=== PATIENT | female | born 1995 | race Caucasian/White ===

== ENCOUNTER 2017-03-07 05:31 | Outpatient (CLI) | payer OTHER ==
[~2017-03-07] VITALS: Ht 172.7 cm; Wt 58.5 kg
[2017-03-07] MEDS ORDERED: OVRAL PO (10:33)
[2017-03-07] MEDS ORDERED: FLUO20CA42 PO (10:33)
== END 2017-03-07 10:48 ==
LOC: PREOP 05:31
PROVIDERS: ATTEND Otolaryngology Otolaryngology/Facial Plastic Surgery
DX: Z01.818 Encounter for other preprocedural examination (principal); J35.01 Chronic tonsillitis

== ENCOUNTER 2017-03-10 06:07 | Day surgery (SDC) | payer OTHER ==
[~2017-03-10] VITALS: Ht 172.7 cm; Wt 58.5 kg
[~2017-03-10 06:07] MED LIST: FLUO20CA42 PO; OVRAL PO
[2017-03-10] MEDS ORDERED: LACTATED RINGERS 1,000 ML IV PRN (06:25)
[2017-03-10] MEDS ORDERED: ONDANSETRON 4 MG/2 ML (SDV) Z0FRAN IV ONE (06:30)
[2017-03-10] MEDS ORDERED: FAMOTIDINE 20MG/2ML IV (PEPCID) IV ONE (06:30)
[2017-03-10] MEDS ORDERED: proPOfol 200 MG/20 ML (DIPRIVAN) VIAL IV ONE ×2 (06:40→07:41)
[2017-03-10] MEDS ORDERED: LACTATED RINGERS 1,000 ML IV ONE (06:40)
[2017-03-10] MEDS ORDERED: ONDANSETRON 4 MG/2 ML (SDV) Z0FRAN ONE ×2 (06:40→07:09)
[2017-03-10] MEDS ORDERED: DEXAMETHASONE 10 MG/ML (DECADRON) 1 ML VIAL ONE (06:40)
[2017-03-10] MEDS ORDERED: LIDOCAINE PF 2% 5 ML (XYLOCAINE) VIAL ONE (06:40)
[2017-03-10] MEDS ORDERED: ROCURONIUM 50 MG/5 ML (ZEMURON) VIAL IV ONE (06:40)
[2017-03-10] MEDS ORDERED: fentaNYL INJECTION 100 MCG/2 ML AMP ONE ×2 (06:41→07:09)
[2017-03-10] MEDS ORDERED: MIDAZOLAM 2 MG/2 ML (VERSED) VIAL ONE (06:41)
[2017-03-10 06:47] LABS: BASOPHILS # (AUTO) 0.1 10^3/uL (0.0-0.1); BASOPHILS % (AUTO) 1 % (0-10); EOSINOPHILS # (AUTO) 0.2 10^3/uL (0.0-0.3); EOSINOPHILS % (AUTO) 2 % (0-10); LYMPHOCYTES # (AUTO) 2.2 X 10^3 (1.0-4.0); LYMPHOCYTES % (AUTO) 29 % (12-44); MEAN CORPUSCULAR HEMOGLOBIN 29 PG (25-34); MEAN CORPUSCULAR HGB CONC 33 G/DL (32-36); MEAN CORPUSCULAR VOLUME 88 FL (80-99); MEAN PLATELET VOLUME 12.1 FL (7.4-10.4); MONOCYTES # (AUTO) 0.6 X 10^3 (0.0-1.0); MONOCYTES % (AUTO) 8 % (0-12); NEUTROPHILS # (AUTO) 4.6 X 10^3 (1.8-7.8); NEUTROPHILS % (AUTO) 60 % (42-75); PLATELET COUNT 250 10^3/uL (130-400); RED BLOOD COUNT 4.36 10^6/uL (4.35-5.85); RED CELL DISTRIBUTION WIDTH 14.4 % (10.0-14.5); WHITE BLOOD COUNT 7.7 10^3/uL (4.3-11.0)
[2017-03-10] MEDS ORDERED: morphine INJ 10 MG/ML 1ML (SYR OR VIAL) ONE (07:08)
--- NOTE | 2017-03-10 07:11 | Progress Note-Pre Operative ---
Pre-Operative Progress Note H&P Reviewed The H&P was reviewed, patient examined and no changes noted. Date Seen by Provider: Mar 10, 2017 Time Seen by Provider: 06:45 Date H&P Reviewed: Mar 10, 2017 Time H&P Reviewed: 06:45 Pre-Operative Diagnosis: REcurrent /Chronic Tonsillitis CORBY RIVERA MD Mar 10, 2017 7:11 am
[2017-03-10] MEDS ORDERED: ONDANSETRON 4 MG/2 ML (SDV) Z0FRAN IVP PRN (07:30)
[2017-03-10] MEDS ORDERED: MEPERIDINE (DEMEROL) INJ 50 MG/ML IVP PRN (07:30)
[2017-03-10] MEDS ORDERED: SEVOFLURANE (ULTANE) 15 ML INHAL SOLN ONE (07:41)
[2017-03-10] MEDS ORDERED: NS IV 1000 ML 1,000 ML IV SCH (07:42)
--- NOTE | 2017-03-10 07:42 | Progress Note-Post Operative ---
Post-Operative Progess Note Surgeon (s)/Stock Preparation Supervisor (s) Surgeon CORBY RIVERA MD Stock Preparation Supervisor n/a Pre-Operative Diagnosis REcurrent /Chronic Tonsillitis Post-Operative Diagnosis same Post-Op Procedure Note Date of Procedure: Mar 10, 2017 Name of Procedure Performed: Tonsillectomy Description & Findings Description and Findings: n/a Anesthesia Type get Estimated Blood Loss minimal Packing none. Specimen(s) collected/removed tonsils CORBY RIVERA MD Mar 10, 2017 7:42 am
[2017-03-10] MEDS ORDERED: APAP 325 MG/10.15 ML LIQ (TYLENOL) UDC PO PRN (07:45)
[2017-03-10] MEDS ORDERED: HYDROcodone/APAP 7.5MG-325 MG/15 ML (LORTAB) UDC PO PRN (07:45)
[2017-03-10] MEDS: morphine INJ 10 MG/ML 1ML (SYR OR VIAL) IVP PRN ×3 (08:07→08:20)
[2017-03-10] MEDS ORDERED: TETRACAINESUCKERS MT (09:41)
[2017-03-10] MEDS ORDERED: DEXAMETHASONE PO (09:41)
[2017-03-10] MEDS ORDERED: OXYC5SOL19 PO (09:41)
[2017-03-10] MEDS ORDERED: AZIT200S PO (09:41)
== END 2017-03-10 10:55 | disposition home or self-care (01) ==
LOC: SDC 06:07
PROVIDERS: ATTEND Otolaryngology Otolaryngology/Facial Plastic Surgery
DX: J35.01 Chronic tonsillitis (principal); K21.9 Gastro-esophageal reflux disease without esophagitis
CPT/HCPCS: 36415; 84703; 85025; 87081; 88304

== ENCOUNTER 2018-12-11 14:34 | Outpatient (CLI) | payer OTHER ==
[~2018-12-11] VITALS: Ht 172.7 cm; Wt 58.5 kg
[2018-12-11] VITALS (8 sets, daily range): BP systolic 97–109; BP diastolic 51–58
[~2018-12-11 14:34] MED LIST changes: +AZIT200S PO; +DEXAMETHASONE PO; +OXYC5SOL19 PO; +TETRACAINESUCKERS MT
--- NOTE | 2018-12-11 14:40 | NUR ---
PALMALA Riley presented to unit via AMBULATION from ED, accompanied by MOTHER AND GRANDFATHER, with c/o VOMITTING. LA PALMA weighed, gowned, voided, and to bed. EFHM and TOCO applied, VS taken. PALMA,LA N oriented to bed controls, call light, TV, heat, and A/C controls.
--- NOTE | 2018-12-11 14:55 | NUR ---
INITIAL ASSESSMENT COMPLETED, SEE INTERVENTIONS FOR DETAILED ASSESSMENTS, PT REPORTS BEING DISCHARGED FROM [facility] ON TUESDAY WITH DIAGNOSIS OF PYLONEPHRITIS, E COLI IN URINE. PT REPORTS N/V/D STARTING LAST YESTERDAY AFTERNOON AND CONTINUING TODAY, PT REPORTS SHE IS UNABLE TO KEEP ANYTHING DOWN AND HAS NOTICE BLOOD STREAKS IN HER EMESIS. PT ALSO REPORTS SEVERAL DIARRHEA STOOLS TODAY AND LOWER ABDOMINAL CRAMPING. UA COLLECTED SENT TO LAB. PLAN OF CARE EXPLAINED, NOTIFIED, NEW ORDERS RECEIVED.
[2018-12-11] MEDS ORDERED: LACTATED RINGERS 1,000 ML IV SCH (15:15)
[2018-12-11] MEDS ORDERED: ONDANSETRON 4 MG/2 ML (SDV) Z0FRAN IVP ONE (15:15)
[2018-12-11] MEDS ORDERED: TAMS0.4C98 PO (15:24)
[2018-12-11] MEDS ORDERED: SULF1TAB35 PO (15:24)
[2018-12-11] MEDS ORDERED: ONDA4TAB11 PO (15:24)
[2018-12-11] MEDS ORDERED: ACET-789 PO (15:24)
[2018-12-11] MEDS ORDERED: NITR-65 PO (15:24)
[2018-12-11] MEDS ORDERED: OXYC5CAP18 PO (15:24)
[2018-12-11 15:43] LABS: BILIRUBIN,URINE NEGATIVE (NEGATIVE); CLARITY,URINE CLEAR; COLOR,URINE YELLOW; GLUCOSE, URINE (UA) NEGATIVE (NEGATIVE); KETONES,URINE 4+ (NEGATIVE); LEUKOCYTE ESTERASE ,URINE 1+ (NEGATIVE); NITRITE,URINE NEGATIVE (NEGATIVE); PH,URINE 6 (5-9); PROTEIN,URINE NEGATIVE (NEGATIVE); UROBILINOGEN,URINE NORMAL (NORMAL)
[2018-12-11 15:53] LABS: BACTERIA,URINE TRACE /HPF
[2018-12-11] MEDS ORDERED: PROCHLORPERAZINE 25 MG (COMPAZINE) SUPP PR ONE (16:15)
--- NOTE | 2018-12-11 16:26 | History & Physical-OB/GYN ---
History of Present Illness History of Present Illness Reason for visit/HPI Ms. Chavez presents to the hospital secondary to nausea, vomiting and diarrhea. She was recently discharged from [facility] where she was treated for pyelonephritis. She was discharged with Bactrim. Ms. Chavez and her mother think that she may be allergic to the Bactrim that is why she is having all these problems. Date of Admission January 10, 2019 Date Seen by a Provider: Dec 11, 2018 Time Seen by a Provider: 16:15 I consulted on this patient on 12/11/18 16:19 Attending Physician Fabrice Archer DO Admitting Physician Fabrice Archer DO Consult Allergies and Home Medications Allergies Coded Allergies: Penicillins (Verified Allergy, Intermediate, HIVES, 03/07/17) Home Medications Acetaminophen with Codeine 1 Each Tablet, 1 TAB PO Q6H, (Reported) Nitrofurantoin Monohyd/M-Cryst 100 Mg Capsule, 1 TAB PO DAILY, (Reported) Ondansetron 4 Mg Tab.rapdis, 4 MG PO Q4H, (Reported) Oxycodone HCl 5 Mg Capsule, 5 MG PO Q4H, (Reported) Sulfamethoxazole/Trimethoprim 1 Each Tablet, 1 TAB PO BID PRN for URINARY TRACT INFECTION, (Reported) Tamsulosin HCl 0.4 Mg Cap, 0.4 MG PO DAILY, (Reported) Patient Home Medication List Home Medication List Reviewed: Yes Past Vemhbcz-Femwki-Bwwxtl Hx Patient Social History Recent Hopitalizations: No Seasonal Allergies Seasonal Allergies: No Surgeries Gallbladder Neurological Headaches /Migraines Reproductive System Hx Reproductive Disorders: No Sexually Transmitted Disease: No HIV/AIDS: No Female Reproductive Disorders: Ovarian Cyst Musculoskeletal Chronic Back Pain HEENT Loss of Vision: Bilateral Hearing Impairment: Denies Psychosocial Behavioral Health Disorders: Anxiety Blood Transfusions Adverse Reaction to a Blood Tr: No (N/A) Review of Systems Constitutional: see HPI Physical Exam Physical Exam Vital Signs Capillary Refill : Labs Laboratory Tests 12/11/18 15:00: Urine Color YELLOW, Urine Clarity CLEAR, Urine pH 6, Urine Specific [place] 1.020, Urine Protein NEGATIVE, Urine Glucose (UA) NEGATIVE, Urine Ketones 4+H, Urine Nitrite NEGATIVE, Urine Bilirubin NEGATIVE, Urine Urobilinogen NORMAL, Urine Leukocyte Esterase 1+H, Urine RBC (Auto) 1+H, Urine RBC NONE, Urine WBC 2- 5, Urine Squamous Epithelial Cells 2-5, Urine Crystals NONE, Urine Bacteria TRACE, Urine Casts NONE, Urine Mucus NEGATIVE, Urine Culture Indicated NO General Appearance: No Apparent Distress Respiratory: Chest Non Tender, Lungs Clear Cardiovascular: Regular Rate, Rhythm, No Murmur Abdominal: normal bowel sounds, non tender Extremity: Normal Inspection, Non Tender Assessment/Plan Assessment and Plan Assessment: Intrauterine at 24 weeks 2. Hyperemesis 3. Diarrhea 4. Dehydration Plan: IV hydration. IV Zofran. Compazine Suppositories. Intermittent monitoring. Imodium AD prn diarrhea (one dose only). CMP, CBC, Urinalysis, and TSH. Admission Diagnosis with nausea, vomiting, and diarrhea Admission Status: Observation Reason for Inpatient Admission: with uncontrolled vomiting despite taking antiemetics. Also, having diarrhea FABRICE ARCHER DO Dec 11, 2018 16:26
[2018-12-11] MEDS ORDERED: LOPERAMIDE 1 MG/5 ML PO ONE (16:30)
[2018-12-11] MEDS ORDERED: D5 LR IV SOLUTION 1,000 ML IV ONE (16:30)
--- NOTE | 2018-12-11 17:02 | NUR ---
LAB HERE UNABLE TO DRAW BLOOD, ANOTHER BOBCAT DRIVER/LABOR BEING SENT UP.
[2018-12-11 17:22] LABS: BASOPHILS % (AUTO) 0 % (0-10); EOSINOPHILS % (AUTO) 0 % (0-10); HEMATOCRIT 34 % (35-52); HEMOGLOBIN 11.3 G/DL (11.5-16.0); LYMPHOCYTES # (AUTO) 1.1 X 10^3 (1.0-4.0); LYMPHOCYTES % (AUTO) 11 % (12-44); MEAN CORPUSCULAR HEMOGLOBIN 30 PG (25-34); MEAN CORPUSCULAR HGB CONC 33 G/DL (32-36); MEAN CORPUSCULAR VOLUME 89 FL (80-99); MEAN PLATELET VOLUME 11.1 FL (7.4-10.4); MONOCYTES # (AUTO) 0.5 X 10^3 (0.0-1.0); MONOCYTES % (AUTO) 5 % (0-12); NEUTROPHILS # (AUTO) 8.4 X 10^3 (1.8-7.8); NEUTROPHILS % (AUTO) 84 % (42-75); PLATELET COUNT 326 10^3/uL (130-400); RED CELL DISTRIBUTION WIDTH 12.5 % (10.0-14.5)
--- NOTE | 2018-12-11 17:30 | NUR ---
ESTABLISHMENT GUIDE HERE BLOOD SAMPLE COLLECTED.
--- NOTE | 2018-12-11 17:32 | NUR ---
COMPAZINE SUPPOSITORY GIVEN
[2018-12-11 17:46] LABS: ALANINE AMINOTRANSFERASE 71 U/L (0-55); ALBUMIN 3.7 GM/DL (3.2-4.5); ALKALINE PHOSPHATASE 164 U/L (40-136); BILIRUBIN,TOTAL 0.4 MG/DL (0.1-1.0); BUN/CREATININE RATIO 9; CALCIUM 9.6 MG/DL (8.5-10.1); CARBON DIOXIDE 19 MMOL/L (21-32); CHLORIDE 104 MMOL/L (98-107); CREATININE SERUM 0.58 MG/DL (0.60-1.30); GFR ESTIMATED > 60; GLUCOSE 71 MG/DL (70-105); POTASSIUM 3.5 MMOL/L (3.6-5.0); SODIUM 136 MMOL/L (135-145); TOTAL PROTEIN 6.9 GM/DL (6.4-8.2)
[2018-12-11] MEDS ORDERED: ACETAMINOPHEN 500 MG TAB (TYLENOL) PO PRN (18:15)
--- NOTE | 2018-12-11 20:00 | NUR ---
Pt. up to bathroom. Assessment and vitals done at this time. Pt. states that she has not thrown up for a couple of hours and has not had diarrhea since she was admitted here. States that she is starting to feel slightly nauseated again and would like to try to eat some crackers if possible. Vitals are all WNL's. Crackers brought to bedside.
[2018-12-11] MEDS ORDERED: ONDANSETRON 4 MG/2 ML (SDV) Z0FRAN IVP PRN (20:15)
[2018-12-11] MEDS: D5 LR IV SOLUTION 1,000 ML IV SCH (22:08)
--- NOTE | 2018-12-11 22:11 | NUR ---
Nurse at pt bedside. Pt. states that she is no longer nauseous or vomiting, but is starting to feel crampy. Pt was able to keep down some crackers and water. Pt hooked up for FHT's and contractions monitors at this time.
[2018-12-12] VITALS (8 sets, daily range): BP systolic 86–114; BP diastolic 42–58
--- NOTE | 2018-12-12 02:05 | NUR ---
Nurse at pt bedside. Pt states that she is doing well and hasn't had any nausea or vomiting.
[2018-12-12] MEDS: D5 LR IV SOLUTION 1,000 ML IV SCH (06:01)
[2018-12-12] MEDS ORDERED: PROC25SU27 RC (06:39)
--- NOTE | 2018-12-12 06:42 | NUR ---
Dr. Archer at pt bedside. orders that pt can be discharged on CL diet advanced to BRAT diet over a day after current bag of fluids are infused. Dr. Archer says that fluids can be run at 500ml until complete.
--- NOTE | 2018-12-12 06:45 | Discharge Summary ---
Diagnosis/Chief Complaint Date of Admission December 11, 2018 Date of Discharge December 12, 2018 Discharge Date: Dec 12, 2018 Discharge Time: 06:45 Admission Diagnosis Admission Diagnosis Intrauterine at 24 weeks 2. Hyperemesis 3. Diarrhea 4. Dehydration Discharge Diagnosis Intrauterine at 24 weeks 2. Hyperemesis 3. Diarrhea 4. Dehydration Reason Hospital Visit Ms. Chavez presents to the hospital secondary to nausea, vomiting and diarr hea. She was recently discharged from [facility] where she was treated for pyelonephritis. She was discharged with Bactrim. Ms. Chavez and her mother think that she may be allergic to the Bactrim that is why she is having all these problems. Discharge Summary-OBS Procedures None. Discharge Physical Examination Allergies: Coded Allergies: Penicillins (Verified Allergy, Intermediate, HIVES, 03/07/17) Vitals & I&Os Vital Signs Date Time Temp Pulse Resp B/P (MAP) Pulse Ox O2 Delivery O2 Flow Rate FiO2 12/12/18 06:25 97.1 66 16 97/54 (68) Room Air General Appearance: Alert, Oriented X3, Cooperative HEENT: Atraumatic, PERRLA, EOMI Respiratory: Clear to Auscultation, Normal Air Movement Cardiovascular: Regular Rate, No Murmurs Abdominal: Normal Bowel Sounds Extremities: No Clubbing, No Cyanosis, No Edema Skin: No Rashes Neuro: Normal Gait, Normal Speech Psych/Mental Status: Mental Status NL Hospital Course Was the Problem List Reviewed?: Yes Ms. Chavez was admitted secondary to uncontrolled nausea with vomiting and diarrhea while . A urinalysis demonstrated dehydration. Consequently, she was admitted for IV hydration, antiemetics and antidiarrheals. Over the course of night she improved greatly. She was discharged with medications, instructions and a follow up appointment. Discharge Instructions to patient/family Please see electronic discharge instructions given to patient. Discharge Medications Reviewed and agree with Discharge Medication list on patient's Discharge Instruction sheet DAGO DEXTER DO Dec 12, 2018 06:45
--- NOTE | 2018-12-12 07:00 | NUR ---
REPORT FROM CAROL DEY.
--- NOTE | 2018-12-12 08:00 | NUR ---
INITIAL ASSESSMENT COMPLETED AT BEDSIDE, S/O SLEEPING IN CHAIR, SEE INTERVENTIONS FOR DETAILED ASSESSMENTS, PLAN OF CARE EXPLAINED AND UPDATED WITH PT, NO QUESTIONS NOTED, WILL MONITOR CLOSELY.
--- NOTE | 2018-12-12 08:50 | NUR ---
IV FLUIDS COMPLETED, IV DC'D. PT DENIES NAUSEA/VOMITING/DIARRHEA, PT ALSO REPORTS NO ABDOMINAL CRAMPING OR CONTRACTION, +FM STATED PER PT. D/C INSTRUCTIONS EXPLAINED SIGNED, NO QUESTIONS NOTED, PRESCRIPTION GIVEN TO PT, PT VERBALIZES UNDERSTANDING OF FOLLOW UP CARE.
--- NOTE | 2018-12-12 08:55 | NUR ---
PT DISCHARGED TO HOME, AMBULATED TO PRIVATE CAR WITH S/O AT SIDE, NO DISTRESS NOTED, PT VERBALIZES UNDERSTANDING OF LABOR PRECAUTIONS AND DISCHARGE INSTRUCTIONS.
== END 2018-12-12 08:55 | disposition home or self-care (01) ==
LOC: WSo 14:34 → LDRP 14:35 → WSo 12-12 08:55
PROVIDERS: ATTEND Obstetrics & Gynecology
DX: O21.2 Late vomiting of pregnancy (principal); R19.7 Diarrhea, unspecified; O99.283 Endocrine, nutritional and metabolic diseases complicating pregnancy, third trimester; E86.0 Dehydration; O99.342 Other mental disorders complicating pregnancy, second trimester; F41.9 Anxiety disorder, unspecified; Z3A.24 24 weeks gestation of pregnancy; G43.909 Migraine, unspecified, not intractable, without status migrainosus; Z88.0 Allergy status to penicillin; Z79.899 Other long term (current) drug therapy
CPT/HCPCS: 36415; 80053; 81000; 84443; 85025; 87088